=== PATIENT | male | born 1990 | race Caucasian/White ===

== ENCOUNTER 2017-07-11 19:35 | Emergency (ER) | payer SELFPAY ==
[~2017-07-11] VITALS: Ht 175.3 cm; Wt 83.9 kg
--- NOTE | 2017-07-11 19:35 | NUR ---
PT BIB [facility], PREBOOK. TAKEN TO OF
[2017-07-11 19:37] VITALS: BP 131/90
--- NOTE | 2017-07-11 19:37 | NUR ---
Noted HR 147. Sent pt to bed 5. Notified Dr Burton. Pt denies any stimulant drug use.
--- NOTE | 2017-07-11 19:37 | NUR ---
PT MOVED TO BED 5
--- NOTE | 2017-07-11 19:42 | NUR ---
27 Y/O M BIB [facility] FOR PREBOOK CLEARANCE S/P TC, ETOH. NO WOUNDS NOTED, PT DENIES PAIN OR LOC AT THE SCENE. TACHYCARDIA NOTED HR 142 ON MONITOR, PT DENIES ANY CHEST PAIN. ER MD MADE AWARE.
--- NOTE | 2017-07-11 19:47 | NUR ---
Dr. Burton evaluating patient at bedside.
[2017-07-11] MEDS ORDERED: NACL 0.9% 1,000 ML IV ONE (19:50)
--- NOTE | 2017-07-11 19:58 | NUR ---
0.9 NS IV BOLUS 999ML/HR STARTED PER ER MD ORDERS. UNABLE TO ACCESS ORDERS ON eMAR. CHARGE NURSE AND MD NOTIFIED.
--- NOTE | 2017-07-11 20:15 | NUR ---
N ADR NOTED TO 0.9 NS AT THE MOMENT. PT RESTING IN BED, NO S/S OF DISTRESS NOTED AT THE MOMENT. [facility] OFFICER REMAINS AT BEDSIDE.
--- NOTE | 2017-07-11 20:54 | NUR ---
0.9 NS IV BOLUS ENDED. PT RECEIVED A TOTAL 1000ML FLUIDS.
[2017-07-11 20:55] VITALS: BP 134/88
--- NOTE | 2017-07-11 20:55 | NUR ---
Patient discharged with v/s stable. Written and verbal after care instructions given and explained. Patient verbalized understanding. Police with in custody. All questions addressed prior to discharge. Advised to follow up with PMD.
== END 2017-07-11 20:55 ==
LOC: MED 19:35
DX: Z02.89 Encounter for other administrative examinations (principal); F14.90 Cocaine use, unspecified, uncomplicated
CPT/HCPCS: 93005; 99283; J7030

== ENCOUNTER 2020-11-14 19:26 | Emergency (ER) | payer MEDICAID ==
[~2020-11-14] VITALS: Ht 175.3 cm; Wt 80.7 kg
--- NOTE | 2020-11-14 19:39 | NUR ---
PT TAKEN TO ISOLATION TENT
[2020-11-14 19:40] VITALS: BP 168/88
--- NOTE | 2020-11-14 19:41 | NUR ---
NOVEL AND MARISELA COVID SWABS COLLECTED AND SENT TO LAB.
--- NOTE | 2020-11-14 19:41 | NUR ---
Dr. Brown examining patient.
--- NOTE | 2020-11-14 20:13 | NUR ---
Patient discharged with v/s stable. Written and verbal after care instructions given and explained. Patient verbalized understanding. Ambulatory with steady gait. All questions addressed prior to discharge. Advised to follow up with PMD.
--- NOTE | 2020-11-16 13:58 | NUR ---
Covid results received from lab. Results = Positive. Hard copy requested from lab and placed in infection controls mailbox.
== END 2020-11-14 20:13 | disposition home or self-care (01) ==
LOC: MED 19:26
DX: Z01.84 Encounter for antibody response examination (principal); Z20.828 Contact with and (suspected) exposure to other viral communicable diseases
CPT/HCPCS: 87426; 99283; U0003